=== PATIENT | female | born 1995 | race Caucasian/White ===

== ENCOUNTER 2022-04-14 11:45 | Outpatient (CLI) | payer OTHER ==
[~2022-04-14] VITALS: Ht 154.9 cm; Wt 87.7 kg
[2022-04-14] MEDS ORDERED: PRENTAB9 PO (11:58)
[2022-04-14] MEDS ORDERED: SYNT75TA PO (11:58)
[2022-04-14] MEDS ORDERED: GNP250TA9 PO (11:58)
[2022-04-14] MEDS ORDERED: BUSP5TAB PO (11:58)
[2022-04-14] MEDS ORDERED: ECOT81TA5 PO (11:58)
[2022-04-14 12:07] VITALS: BP 135/93
[2022-04-14 12:22] VITALS: BP 119/81
[2022-04-14 13:12] LABS: TOTAL PROTEIN,RANDOM URINE 11.2 MG/DL (0.0-14.0)
[2022-04-14 13:17] LABS: BASO % 0.2 % (0.0-1.0); EOS # 0.1 10^3/uL (0.0-0.5); EOS % 0.6 % (0.0-3.0); HEMATOCRIT 35.2 % (36.0-47.0); HEMOGLOBIN 11.1 g/dl (12.0-15.5); LYMPH # 1.5 10^3/uL (1.5-5.0); LYMPH % 17.3 % (24.0-44.0); MEAN CORPUSCULAR HEMOGLOBIN 24.1 pg (27.0-33.0); MEAN CORPUSCULAR HGB CONC 31.5 g/dl (32.0-36.5); MEAN CORPUSCULAR VOLUME 76.4 fl (80.0-96.0); MONO # 0.8 10^3/uL (0.0-0.8); MONO % 9.6 % (2.0-8.0); NEUTROPHILS % 71.4 % (36.0-66.0); PLATELET COUNT, AUTOMATED 330 10^3/uL (150-450); RED BLOOD COUNT 4.61 10^6/uL (4.00-5.40); WHITE BLOOD COUNT 8.5 10^3/uL (4.0-10.0)
[2022-04-14 13:17] LABS: CREATININE,RANDOM URINE 31.6 MG/DL
[2022-04-14 13:19] LABS: APPEARANCE, URINE CLEAR (CLEAR); BACTERIA, URINE AUTO NEGATIVE (NEGATIVE); BILIRUBIN, URINE AUTO NEGATIVE (NEGATIVE); BLOOD, URINE BLOOD NEGATIVE (NEGATIVE); COLOR, URINE STRAW (YELLOW); GLUCOSE, URINE (UA) AUTO NEGATIVE (NEGATIVE); KETONE, URINE AUTO NEGATIVE (NEGATIVE); LEUKOCYTE ESTERASE, URINE AUTO NEGATIVE (NEGATIVE); NITRITE, URINE AUTO NEGATIVE (NEGATIVE); PROTEIN, URINE AUTO NEGATIVE (NEGATIVE); RBC, URINE AUTO 2 /HPF (0-3); SPECIFIC GRAVITY URINE AUTO 1.005 (1.002-1.035); SQUAMOUS EPITHELIAL CELL UR AU 2 /HPF (0-6); UROBILINOGEN, URINE AUTO 0.2 mg/dL (0.0-2.0); WBC, URINE AUTO 3 /HPF (0-3)
[2022-04-14 13:39] LABS: URIC ACID 4.4 MG/DL (3.1-7.8)
[2022-04-14 13:41] LABS: LDH LACTATE DEHYDROGENASE 149 U/L (120-246)
[2022-04-14 13:42] LABS: ALBUMIN 2.6 G/DL (3.2-5.2); ALKALINE PHOSPHATASE 148 U/L (46-116); ALT/SGPT 36 U/L (7.0-40); AST/SGOT 27 U/L (<34); BILIRUBIN,TOTAL 0.3 MG/DL (0.3-1.2); BLOOD UREA NITROGEN 8 MG/DL (9-23); CALCIUM LEVEL 9.1 MG/DL (8.5-10.1); CARBON DIOXIDE LEVEL 25 MMOL/L (20-31); CHLORIDE LEVEL 107 MMOL/L (98-107); CREATININE FOR GFR 0.55 MG/DL (0.55-1.30); GLOMERULAR FILTRATION RATE > 60.0 (>60); GLUCOSE, FASTING 79 MG/DL (60-100); POTASSIUM SERUM 4.3 MMOL/L (3.5-5.1); SODIUM LEVEL 139 MMOL/L (136-145)
[2022-04-15] MEDS ORDERED: CELE20TA PO (16:03)
== END 2022-04-14 13:56 | disposition home or self-care (01) ==
LOC: M LDO 11:45
PROVIDERS: ATTEND Obstetrics & Gynecology
DX: O26.893 Other specified pregnancy related conditions, third trimester (principal); R00.2 Palpitations; R55 Syncope and collapse; Z3A.36 36 weeks gestation of pregnancy; O34.219 Maternal care for unspecified type scar from previous cesarean delivery
CPT/HCPCS: 36415; 59025; 80053; 81001; 82570; 83615; 84156; 84550; 85025; 93005; G0463

== ENCOUNTER 2022-04-15 15:09 | Outpatient (CLI) | payer OTHER ==
[~2022-04-15] VITALS: Ht 154.9 cm; Wt 88.3 kg
[~2022-04-15 15:09] MED LIST: BUSP5TAB PO; ECOT81TA5 PO; GNP250TA9 PO; PRENTAB9 PO; SYNT75TA PO
[2022-04-15 15:35] VITALS: BP 122/80
[2022-04-15 15:59] LABS: TOTAL PROTEIN 24 HOUR URINE 162.1 MG/24HR (50-80); URINE TOTAL PROTEIN 10.6 MG/DL (0-14)
[2022-04-15] MEDS ORDERED: CELE20TA PO (16:03)
[2022-04-15] MEDS ORDERED: HOME MED LIST COMPLETE! XX SCH (16:05)
== END 2022-04-15 15:56 | disposition home or self-care (01) ==
LOC: M LDO 15:09
PROVIDERS: ATTEND Obstetrics & Gynecology
DX: O26.893 Other specified pregnancy related conditions, third trimester (principal); R03.0 Elevated blood-pressure reading, without diagnosis of hypertension; O34.219 Maternal care for unspecified type scar from previous cesarean delivery; Z87.59 Personal history of other complications of pregnancy, childbirth and the puerperium; Z88.1 Allergy status to other antibiotic agents; Z79.890 Hormone replacement therapy; Z79.82 Long term (current) use of aspirin
CPT/HCPCS: 59025; 81050; 84156; G0463

== ENCOUNTER 2022-11-26 15:06 | Observation (INO) | payer OTHER ==
[~2022-11-26] VITALS: Ht 154.9 cm; Wt 90.9 kg
[~2022-11-26 15:06] MED LIST changes: +ACET-683 PO; +CELE20TA PO; +CELE40TA PO; +COLA100C5 PO; +IBUP80TA PO; +OXYC-517 PO
[2022-11-26] MEDS ORDERED: ONDANSETRON 4MG ORAL DISINTEGRATING TAB PO PRN (16:05)
[2022-11-26] MEDS ORDERED: MORPHINE 2 MG/ML 1ML VIAL IV PRN ×2 (16:05→19:05)
[2022-11-26 17:10] VITALS: BP 119/73; TEMP 97; O2SAT 98
[2022-11-26] MEDS ORDERED: PROZ40CA PO (17:25)
[2022-11-26] MEDS ORDERED: PROP20TA72 PO (17:25)
[2022-11-26] MEDS ORDERED: HOME MED LIST COMPLETE! XX SCH (17:25)
[2022-11-26] MEDS ORDERED: TUMS500C PO (17:25)
[2022-11-26] MEDS: LR 1,000 ML IV SCH ×2 (17:55→22:15)
[2022-11-26 18:05] LABS: HEMATOCRIT 37.6 % (36.0-47.0); HEMOGLOBIN 11.7 g/dl (12.0-15.5); MEAN CORPUSCULAR HEMOGLOBIN 23.7 pg (27.0-33.0); MEAN CORPUSCULAR HGB CONC 31.1 g/dl (32.0-36.5); MEAN CORPUSCULAR VOLUME 76.3 fl (80.0-96.0); PLATELET COUNT, AUTOMATED 269 10^3/uL (150-450); RED BLOOD COUNT 4.93 10^6/uL (4.00-5.40); WHITE BLOOD COUNT 10.1 10^3/uL (4.0-10.0)
[2022-11-26] MEDS ORDERED: ONDANSETRON 4MG 2ML VIAL IV PRN (19:05)
[2022-11-26] MEDS ORDERED: fentaNYL 100 MCG/2 ML INJECTION IV PRN (19:05)
[2022-11-26] MEDS ORDERED: oxyCODONE 5MG TAB PO PRN (19:05)
[2022-11-26] MEDS ORDERED: ROCURONIUM BROMIDE 50MG/5ML VIAL As Ordered ONE (19:50)
[2022-11-26] MEDS ORDERED: MIDAZOLAM INJ 2MG/2ML VIAL As Ordered ONE (19:50)
[2022-11-26] MEDS ORDERED: dexmedeTOMIDine (4MCG/ML)200MCG/50ML BTL (PRECEDEX) As Ordered ONE (19:50)
[2022-11-26] MEDS ORDERED: fentaNYL 250 MCG/5 ML INJECTION As Ordered ONE (19:50)
[2022-11-26] MEDS ORDERED: LIDOCAINE 2% 100MG/5ML SDV (FOR ANES.) As Ordered ONE (19:50)
[2022-11-26] MEDS ORDERED: ONDANSETRON 4MG 2ML VIAL As Ordered ONE (19:50)
[2022-11-26] MEDS ORDERED: SUGAMMADEX SODIUM 500 MG/5 ML VIAL (BRIDION) As Ordered ONE (19:50)
[2022-11-26] MEDS ORDERED: propofoL 200 MG/20 ML VIAL As Ordered ONE (19:50)
[2022-11-26] MEDS ORDERED: KETOROLAC 60MG 2ML VIAL As Ordered ONE (20:15)
[2022-11-26 21:15] VITALS: BP 145/85; TEMP 97; O2SAT 100
[2022-11-26] MEDS: ACETAMINOPHEN TAB 650MG DOSE (2X325MG) PO PRN (21:26)
[2022-11-26 21:45] VITALS: BP 133/76; TEMP 96.8; O2SAT 95
[2022-11-26 22:15] VITALS: BP 123/71; TEMP 97.5; O2SAT 97
[2022-11-26 23:15] VITALS: BP 111/57; TEMP 98.7; O2SAT 91
[2022-11-27 00:15] VITALS: BP 141/74; TEMP 97; O2SAT 97
[2022-11-27] MEDS ORDERED: PROP20TA72 PO (00:57)
[2022-11-27] MEDS ORDERED: TUMS500C PO (00:57)
[2022-11-27] MEDS ORDERED: FLUO40CA PO (00:57)
[2022-11-27] MEDS ORDERED: HOME MED LIST COMPLETE! XX SCH (01:00)
[2022-11-27 01:15] VITALS: BP 134/66; TEMP 97; O2SAT 98
[2022-11-27 02:15] VITALS: BP 136/89; TEMP 96.7; O2SAT 98
[2022-11-27] MEDS: PERCOCET 5MG/325MG TAB PO PRN ×2 (02:24→08:27)
[2022-11-27 05:15] VITALS: BP 142/73; TEMP 96.9; O2SAT 98
[2022-11-27] MEDS: ACETAMINOPHEN TAB 650MG DOSE (2X325MG) PO PRN (07:30)
[2022-11-27 07:45] VITALS: BP 126/74; TEMP 97; O2SAT 97
[2022-11-27] MEDS ORDERED: ONDA4TAB6 PO (07:52)
[2022-11-27] MEDS ORDERED: OXYC1TAB23 PO (07:52)
[2022-11-27] MEDS ORDERED: ENOXAPARIN 40MG/0.4ML SYRINGE (J1650 PER 10MG) SC SCH (09:00)
== END 2022-11-27 08:40 | disposition home or self-care (01) ==
LOC: M PED 17:07 → INTOOBSV 17:07
PROVIDERS: ADMIT Surgery; ATTEND Surgery
DX: K35.890 Other acute appendicitis without perforation or gangrene (principal); E07.9 Disorder of thyroid, unspecified; E28.2 Polycystic ovarian syndrome; F41.9 Anxiety disorder, unspecified; Z88.0 Allergy status to penicillin; Z79.899 Other long term (current) drug therapy
CPT/HCPCS: 36415; 44970; 85027; 86850; 86900; 86901; 88304; 96360; 96361; J0665; J1100; J1885; J2250; J2405; J3010